=== PATIENT | female | born 1945 | race Hispanic/Latino ===

== ENCOUNTER 2020-02-18 05:33 | Inpatient (IN) | payer MEDICARE ==
--- NOTE | 2020-02-18 05:50 | Emergency Department Report ---
Blank Doc - Documentation Documentation: 74-year-old female with no reported medical history presents to ED in respirat ory distress. Patient reports she awoke this morning with difficulty breathing. EMS reports O2 sats on room air were 90%. Patient was given albuterol nebulizer treatment, mag sulfate 2 g, Solu-Medrol 125 mg. EMS attempted CPAP, however the patient did not tolerate. Patient arrives to ED nonrebreather. Patient reports a cough. She denies fever or known contact with anyone who has tested positive for COVID-19. She is tachypneic. Slight rales in lung bases. Patient placed on BiPAP. Orders will be placed for oncoming physician.
[2020-02-18 05:53] LABS: ABG Base Excess 1.9 mmol/L (-2.0-3.0); ABG HCO3 25.5 mmol/L (20.0-26.0); ABG Methemoglobin 0.5 % (0.0-1.5); ABG Oxygen Saturation 95.7 % (95.0-99.0); ABG PCO2 36.4 mm Hg; ABG PH 7.462 pH Units (7.350-7.450); ABG PO2 73.4 mm Hg (80.0-90.0)
--- NOTE | 2020-02-18 06:15 | XRay Report ---
CHEST 1 VIEW, 02/18/2020 5:04 AM CLINICAL INFORMATION/INDICATION: Cough COMPARISON: None. FINDINGS: SUPPORT DEVICES: None. HEART: The cardiac silhouette is normal in size. LUNGS/PLEURA: There are diffuse faint bilateral pulmonary opacities bilaterally. There may be a trace right pleural effusion. ADDITIONAL FINDINGS: No additional acute findings. IMPRESSION: 1. Faint bilateral pulmonary opacities. This may suggest developing infectious process or pulmonary e naya. 2. Probable small right pleural effusion. Signer Name: Erica Camp MD Signed: 02/18/2020 6:11 AM Workstation Name: [id number]
[2020-02-18 06:16] LABS: Basophils % (Auto) 0.3 % (0.0-1.8); Eosinophils # (Auto) 0.1 K/mm3 (0.0-0.4); Hematocrit 41.1 % (30.3-42.9); Hemoglobin 13.7 gm/dl (10.1-14.3); Lymphocytes # (Auto) 0.8 K/mm3 (1.2-5.4); Lymphocytes % (Auto) 9.7 % (13.4-35.0); Mean Corpuscular HGB Conc 33 % (30-34); Mean Corpuscular Volume 90 fl (79-97); Monocytes # (Auto) 0.4 K/mm3 (0.0-0.8); Monocytes % (Auto) 4.4 % (0.0-7.3); Platelet Count 245 K/mm3 (140-440); Red Blood Count 4.56 M/mm3 (3.65-5.03); Red Cell Distribution Width 13.8 % (13.2-15.2)
[2020-02-18 06:23] LABS: INR 1.15 (0.87-1.13)
[2020-02-18 06:24] LABS: Partial Thromboplastin Time 29.5 Sec. (24.2-36.6)
--- NOTE | 2020-02-18 06:29 | Emergency Department Report ---
ED Shortness of Breath HPI - General Chief Complaint: Dyspnea/Respdistress Stated Complaint: DEEP Time Seen by Provider: 02/18/20 06:27 Source: patient, EMS Mode of arrival: Stretcher Limitations: Other - History of Present Illness Initial Comments: This is a 74-year-old female who was placed on BiPAP for respiratory distress prior to my arrival. I reviewed her blood gas. She is not retaining CO2 and her PO2 was in the 70s. Despite this she was very tachypneic. Her x-ray was consistent with a COVID-19 infection. She was placed on isolation. She was not following commands or stating her name. She was tried on high flow O2. This maintained her sat in the upper 80s. However it was very clear With her respiratory rate persistently in the mid 40s, that this was nonsustainable. Therefore it was determined that elective intubation was required. This patient has no prior history at this facility. No further information was available to me at the time of her critical care management. We proceeded with RSI. - Related Data Allergies Allergy/AdvReac Type Severity Reaction Status Date / Time No Known Allergies Allergy Verified 02/18/20 05:39 ED Review of Systems ROS: Stated complaint: DEEP Other details as noted in HPI Comment: Unobtainable due to pts medical conditions ED Past Medical Hx - Past Medical History Previous Medical History?: No - Surgical History Past Surgical History?: No - Social History Smoking Status: Never Smoker Substance Use Type: None ED Physical Exam - General Limitations: Altered Mental Status, Other General appearance: lethargic, other (Respiratory distress) - Head Head exam: Present: atraumatic, normocephalic - Eye Eye exam: Absent: scleral icterus - ENT ENT exam: Present: mucous membranes dry - Neck Neck exam: Absent: meningismus - Respiratory Respiratory exam: Present: accessory muscle use, other (Very tachypneic) - Cardiovascular Cardiovascular Exam: Present: regular rate, normal rhythm. Absent: systolic murmur, diastolic murmur, rubs, gallop - GI/Abdominal GI/Abdominal exam: Present: soft, normal bowel sounds. Absent: distended, tenderness, guarding - Extremities Exam Extremities exam: Present: other (No deformity) - Back Exam Back exam: Present: normal inspection (Limited exam) - Neurological Exam Neurological exam: Present: altered - Skin Skin exam: Present: warm, dry, intact, normal color. Absent: rash ED Course Vital Signs 02/18/20 02/18/20 02/18/20 05:34 05:35 05:39 Pulse Rate 96 H 99 H Respiratory 44 H 51 H Rate Blood Pressure 154/72 O2 Sat by Pulse 96 95 96 Oximetry 02/18/20 02/18/20 02/18/20 05:45 06:00 06:16 Pulse Rate 95 H 96 H Respiratory 40 H 44 H 48 H Rate Blood Pressure 154/94 144/89 O2 Sat by Pulse 98 97 97 Oximetry 02/18/20 02/18/20 02/18/20 06:30 06:46 07:00 Pulse Rate 95 H 95 H 92 H Respiratory 35 H 36 H 44 H Rate Blood Pressure 159/93 159/93 146/80 O2 Sat by Pulse 98 90 87 Oximetry 02/18/20 02/18/20 02/18/20 07:16 07:38 08:18 Pulse Rate 90 90 Respiratory 45 H Rate Blood Pressure 140/82 105/50 O2 Sat by Pulse 90 92 85 Oximetry - Reevaluation(s) Reevaluation #1: RSI was performed. The patient was intubated single attempt. She was placed on sedated and restrained. She is admitted to the hospitalist service and obviously guarded condition with presumptive COVID-19 infection and respiratory failure 02/18/20 09:12 - Intubation Time Out Performed: No Sedative: Etomidate Paralytic: Succinylcholine Laryngoscope: Isaac Size: 4 ET Tube Size: 7.5 Tube Secured Depth (cm): 22 Tube Secured Location: teeth Tube Placement Confirmation: visualized tube passing t Patient Tolerated Procedure: well, no complications Intubation Complications: none ED Medical Decision Making - Lab Data Result diagrams: 02/18/20 05:50 02/18/20 07:26 Laboratory Results - last 24 hr 02/18/20 02/18/20 02/18/20 05:45 05:50 05:50 WBC RBC Hgb Hct MCV MCH MCHC RDW Plt Count Lymph % (Auto) [place] % (Auto) Eos % (Auto) Baso % (Auto) Lymph # (Auto) [place] # (Auto) Eos # (Auto) Baso # (Auto) Seg Neutrophils % Seg Neutrophils # PT 14.7 INR 1.15 H APTT 29.5 ABG pH 7.462 H ABG pCO2 36.4 ABG pO2 73.4 L ABG HCO3 25.5 ABG O2 Saturation 95.7 ABG O2 Content 17.8 ABG Base Excess 1.9 ABG Hemoglobin 13.5 ABG Carboxyhemoglobin 1.1 ABG Methemoglobin 0.5 Oxyhemoglobin 94.2 L FiO2 80 Sodium Potassium Chloride Carbon Dioxide Anion Gap BUN Creatinine Estimated GFR BUN/Creatinine Ratio Glucose Lactic Acid Calcium Magnesium Ferritin Total Bilirubin AST ALT Alkaline Phosphatase Lactate Dehydrogenase Troponin T < 0.010 C-Reactive Protein NT-Pro-B Natriuret Pep Total Protein Albumin Albumin/Globulin Ratio 02/18/20 02/18/20 02/18/20 05:50 05:50 05:50 WBC 8.6 RBC 4.56 Hgb 13.7 Hct 41.1 MCV 90 MCH 30 MCHC 33 RDW 13.8 Plt Count 245 Lymph % (Auto) 9.7 L [place] % (Auto) 4.4 Eos % (Auto) 1.0 Baso % (Auto) 0.3 Lymph # (Auto) 0.8 L [place] # (Auto) 0.4 Eos # (Auto) 0.1 Baso # (Auto) 0.0 Seg Neutrophils % 84.6 H Seg Neutrophils # 7.3 PT INR APTT ABG pH ABG pCO2 ABG pO2 ABG HCO3 ABG O2 Saturation ABG O2 Content ABG Base Excess ABG Hemoglobin ABG Carboxyhemoglobin ABG Methemoglobin Oxyhemoglobin FiO2 Sodium 144 Potassium 3.0 L Chloride 101.2 Carbon Dioxide 25 Anion Gap 21 BUN 19 H Creatinine 0.8 Estimated GFR > 60 BUN/Creatinine Ratio 24 Glucose 175 H Lactic Acid 2.70 H* Calcium 8.2 L Magnesium Ferritin Total Bilirubin 0.40 AST 25 ALT 17 Alkaline Phosphatase 71 Lactate Dehydrogenase Troponin T C-Reactive Protein NT-Pro-B Natriuret Pep 809.0 Total Protein 6.5 Albumin 3.1 L Albumin/Globulin Ratio 0.9 02/18/20 02/18/20 02/18/20 07:26 07:26 07:26 WBC RBC Hgb Hct MCV MCH MCHC RDW Plt Count Lymph % (Auto) [place] % (Auto) Eos % (Auto) Baso % (Auto) Lymph # (Auto) [place] # (Auto) Eos # (Auto) Baso # (Auto) Seg Neutrophils % Seg Neutrophils # PT 14.6 INR 1.15 H APTT 32.0 ABG pH ABG pCO2 ABG pO2 ABG HCO3 ABG O2 Saturation ABG O2 Content ABG Base Excess ABG Hemoglobin ABG Carboxyhemoglobin ABG Methemoglobin Oxyhemoglobin FiO2 Sodium Potassium Chloride Carbon Dioxide Anion Gap BUN Creatinine Estimated GFR BUN/Creatinine Ratio Glucose Lactic Acid 2.20 H* Calcium Magnesium 2.80 H Ferritin Total Bilirubin AST ALT Alkaline Phosphatase Lactate Dehydrogenase Troponin T C-Reactive Protein NT-Pro-B Natriuret Pep Total Protein Albumin Albumin/Globulin Ratio 02/18/20 02/18/20 07:26 07:26 WBC RBC Hgb Hct MCV MCH MCHC RDW Plt Count Lymph % (Auto) [place] % (Auto) Eos % (Auto) Baso % (Auto) Lymph # (Auto) [place] # (Auto) Eos # (Auto) Baso # (Auto) Seg Neutrophils % Seg Neutrophils # PT INR APTT ABG pH ABG pCO2 ABG pO2 ABG HCO3 ABG O2 Saturation ABG O2 Content ABG Base Excess ABG Hemoglobin ABG Carboxyhemoglobin ABG Methemoglobin Oxyhemoglobin FiO2 Sodium Potassium Chloride Carbon Dioxide Anion Gap BUN Creatinine Estimated GFR BUN/Creatinine Ratio Glucose 201 H Lactic Acid Calcium Magnesium Ferritin 514.3 H Total Bilirubin AST ALT Alkaline Phosphatase Lactate Dehydrogenase 616 H Troponin T C-Reactive Protein 35.60 H NT-Pro-B Natriuret Pep Total Protein Albumin Albumin/Globulin Ratio - EKG Data EKG shows normal: sinus rhythm - EKG Data Interpretation: other (Right bundle branch block) - Radiology Data Radiology results: report reviewed, image reviewed IMPRESSION: 1. Faint bilateral pulmonary opacities. This may suggest developing infectious process or pulmonary edema. 2. Probable small right pleural effusion. Critical Care Time: Yes Critical care time in (mins) excluding proc time.: 85 Critical care attestation.: If time is entered above; I have spent that time in minutes in the direct care of this critically ill patient, excluding procedure time. ED Disposition Clinical Impression: Hypokalemia, Person under investigation for COVID-19, Right bundle branch block Respiratory failure Qualifiers: Chronicity: acute Respiratory failure complication: unspecified whether with hypoxia or hypercapnia Qualified Code(s): J96.00 - Acute respiratory failure, unspecified whether with hypoxia or hypercapnia Congestive heart failure Qualifiers: Heart failure type: unspecified Heart failure chronicity: acute Qualified Code(s): I50.9 - Heart failure, unspecified Disposition: -09 OP ADMIT IP TO THIS HOSP Is pt being admited?: Yes Does the pt Need Aspirin: Yes Condition: Stable Referrals: PRIMARY CARE, [Primary Care Provider] - 3-5 Days Time of Disposition: 09:17
[2020-02-18 06:31] LABS: Alanine Aminotransferase 17 units/L (7-56); Albumin 3.1 g/dL (3.9-5); BUN/Creatinine Ratio 24; Blood Urea Nitrogen 19 mg/dL (7-17); Calcium 8.2 mg/dL (8.4-10.2); Hemolysis Index 2
[2020-02-18] MEDS ORDERED: FUROSEMIDE 40 MG/4 ML INJ IV ONE (06:51)
[2020-02-18] MEDS ORDERED: POTASSIUM CHLORIDE ER 20 MEQ TAB PO ONE (06:51)
[2020-02-18] MEDS ORDERED: methylPREDNISolone Sod Succinate 125 MG/2 ML INJ IV ONE (06:52)
[2020-02-18] MEDS ORDERED: LIP THERAPY VASELINE TP PRN (07:18)
[2020-02-18] MEDS ORDERED: MINERAL OIL/PETROLATUM, WHITE OPHTH OINT 3.5 GM OU PRN (07:18)
[2020-02-18] MEDS ORDERED: LORazepam 2 MG/ML VIAL IV PRN (07:18)
[2020-02-18] MEDS ORDERED: SUCCINYLCHOLINE CHLORIDE 200 MG/10 ML INJ MDV ONE ×2 (07:25)
[2020-02-18] MEDS ORDERED: ETOMIDATE 20 MG/10 ML INJ IV ONE (07:25)
[2020-02-18] MEDS ORDERED: AZITHROMYCIN 500 MG in SODIUM CHLORIDE 0.9% 250ML 250 ML IV ONE (07:30)
[2020-02-18] MEDS ORDERED: PROPOFOL 500 MG/50 ML VIAL IV SCH (07:30)
[2020-02-18] MEDS ORDERED: LORazepam 100 MG in SODIUM CHLORIDE 0.9% 50 ML, EMPTY BAG 0 ML IV SCH (08:00)
--- NOTE | 2020-02-18 08:15 | XRay Report ---
CHEST 1 VIEW 0743 hours INDICATION: ETT placement. COMPARISON: Earlier today at 0547 hours FINDINGS: Support devices: An endotracheal tube has been inserted which terminates 4.4 cm superior to the carmen a. Heart: Within normal limits. Lungs/Pleura: Mild bilateral infiltrates are again identified concerning for pulmonary edema or atypi michael pneumonia. No pleural effusion or pneumothorax is identified although the left costophrenic angle is cut off the [id number]. Additional findings: None. IMPRESSION: Adequate placement of the endotracheal tube. Stable bilateral mild pulmonary edema or infiltrates. Signer Name: Patrick Holbrook Jr, MD Signed: 02/18/2020 8:11 AM Workstation Name: [id number]
[2020-02-18 08:34] LABS: INR 1.15 (0.87-1.13)
--- NOTE | 2020-02-18 08:46 | History and Physical Report ---
History of Present Illness Date of examination: 02/18/20 Date of admission: 02/18/2020 Chief complaint: Worsening shortness of breath History of present illness: 74-year-old morbidly obese female patient was brought to the emergency room with acute respiratory distress initially on BiPAP, noted to be in acute hypoxic hypercapnic respiratory failure requiring intubation and mechanical ventilation. patient's initial evaluation with chest x-ray was consistent with bilateral pneumonia high suspicion for COVID-19 infection , placed on isolation , requested for inflammatory markers . Patient also has lactic acidosis, and empiric antibiotics Rocephin and Zithromax. Time of my evaluation patient is intubated on ventilatory support, unable to get proper medical history. As per triage note patient presented with worsening shortness of breath and cough denied fever Past History Past Medical History: other (Unknown) Past Surgical History: Other (Unknown) Social history: other (Unknown) Family history: other (Unknown as patient is intubated and no family available) Medications and Allergies Allergies Allergy/AdvReac Type Severity Reaction Status Date / Time No Known Allergies Allergy Verified 02/18/20 05:39 Active Meds: Active Medications Hydrophilic Ointment (Lip Therapy Vaseline) 1 applic TP Q2HR PRN PRN Reason: Dry Lips Propofol (Propofol) 500 mg in 50 mls @ 3.865 mls/hr IV TITR HERNAN; Protocol Lorazepam 100 mg/ Sodium Chloride/ Miscellaneous Information 100 mls @ 1 mls/hr IV TITR HERNAN; Protocol Lorazepam (Lorazepam 2 Mg/Ml Vial) 2 mg IV Q10MIN PRN PRN Reason: Agitation Multi-Ingred Cream/Lotion/Oil/Oint (Mineral Oil/Petrolatum, White Ophth Oint 3.5 Gm) 1 applic OU Q4HR PRN PRN Reason: Dry Eye(s) Review of Systems ROS unobtainable: due to mental status Exam - Constitutional Vitals: Temp Pulse Resp BP Pulse Ox 90 45 H 105/50 85 02/18/20 08:18 02/18/20 07:16 02/18/20 08:18 02/18/20 08:18 General appearance: Present: severe distress, obese (Morbidly obese), other (Orally intubated on ventilatory support) - EENT Eyes: Present: PERRL, EOM intact - Neck Neck: Present: supple, normal ROM - Respiratory Respiratory effort: labored Respiratory: bilateral: diminished, rhonchi, negative: rales, wheezing - Cardiovascular Rhythm: regular Heart Sounds: Present: S1 & S2 - Extremities Extremities: no ischemia, No edema - Abdominal General gastrointestinal: Present: soft, non-tender, non-distended, normal bowel sounds - Integumentary Integumentary: Present: clear, warm - Musculoskeletal Musculoskeletal: other (Intubated on vent) - Psychiatric Psychiatric: other (Intubated on vent) - Neurologic Neurologic: other (Intubated and sedated on vent) HEART Score - HEART Score Troponin: Troponin T < 0.010 ng/mL (0.00-0.029) 02/18/20 05:50 Results - Labs CBC & Chem 7: 02/18/20 05:50 02/18/20 07:26 Labs: Abnormal lab results 02/18/20 02/18/20 02/18/20 Range/Units 05:45 05:50 05:50 Lymph % (Auto) 9.7 L (13.4-35.0) % Lymph # (Auto) 0.8 L (1.2-5.4) K/mm3 Seg Neutrophils % 84.6 H (40.0-70.0) % INR 1.15 H (0.87-1.13) ABG pH 7.462 H (7.350-7.450) pH Units ABG pO2 73.4 L (80.0-90.0) mm Hg Oxyhemoglobin 94.2 L (95.0-99.0) % Potassium (3.6-5.0) mmol/L BUN (7-17) mg/dL Glucose (65-100) mg/dL Lactic Acid (0.7-2.0) mmol/L Calcium (8.4-10.2) mg/dL Magnesium (1.7-2.3) mg/dL Ferritin (10.0-200.0) ng/mL Lactate Dehydrogenase (91-180) units/L Albumin (3.9-5) g/dL 02/18/20 02/18/20 02/18/20 Range/Units 05:50 05:50 07:26 Lymph % (Auto) (13.4-35.0) % Lymph # (Auto) (1.2-5.4) K/mm3 Seg Neutrophils % (40.0-70.0) % INR (0.87-1.13) ABG pH (7.350-7.450) pH Units ABG pO2 (80.0-90.0) mm Hg Oxyhemoglobin (95.0-99.0) % Potassium 3.0 L (3.6-5.0) mmol/L BUN 19 H (7-17) mg/dL Glucose 175 H (65-100) mg/dL Lactic Acid 2.70 H* 2.20 H* (0.7-2.0) mmol/L Calcium 8.2 L (8.4-10.2) mg/dL Magnesium (1.7-2.3) mg/dL Ferritin (10.0-200.0) ng/mL Lactate Dehydrogenase (91-180) units/L Albumin 3.1 L (3.9-5) g/dL 02/18/20 02/18/20 02/18/20 Range/Units 07:26 07:26 07:26 Lymph % (Auto) (13.4-35.0) % Lymph # (Auto) (1.2-5.4) K/mm3 Seg Neutrophils % (40.0-70.0) % INR 1.15 H (0.87-1.13) ABG pH (7.350-7.450) pH Units ABG pO2 (80.0-90.0) mm Hg Oxyhemoglobin (95.0-99.0) % Potassium (3.6-5.0) mmol/L BUN (7-17) mg/dL Glucose 201 H (65-100) mg/dL Lactic Acid (0.7-2.0) mmol/L Calcium (8.4-10.2) mg/dL Magnesium 2.80 H (1.7-2.3) mg/dL Ferritin (10.0-200.0) ng/mL Lactate Dehydrogenase 616 H (91-180) units/L Albumin (3.9-5) g/dL 02/18/20 Range/Units 07:26 Lymph % (Auto) (13.4-35.0) % Lymph # (Auto) (1.2-5.4) K/mm3 Seg Neutrophils % (40.0-70.0) % INR (0.87-1.13) ABG pH (7.350-7.450) pH Units ABG pO2 (80.0-90.0) mm Hg Oxyhemoglobin (95.0-99.0) % Potassium (3.6-5.0) mmol/L BUN (7-17) mg/dL Glucose (65-100) mg/dL Lactic Acid (0.7-2.0) mmol/L Calcium (8.4-10.2) mg/dL Magnesium (1.7-2.3) mg/dL Ferritin 514.3 H (10.0-200.0) ng/mL Lactate Dehydrogenase (91-180) units/L Albumin (3.9-5) g/dL Assessment and Plan --Acute hypoxic respiratory failure; Requiring intubation and mechanical ventilation Nebulizers, wean as tolerated and extubate Critical care consult --Bilateral pneumonia; Empiric antibiotics --Sepsis secondary to bilateral pneumonia --Lactic acidosis --Hypokalemia; replenish per protocol Monitor levels, check magnesium --Moderate malnutrition/hypoalbuminemia Nutrition supplements, nutrition consult if needed --PUI/high suspicion for COVID-19 Isolation precautions per protocol Inflammatory markers, check lozano PCR ID consult, pulmonary consult as needed --Morbid obesity; BMI 45.8 kg Patient needs weight reduction when medically stable --DVT prophylaxis; Lovenox --Full CODE STATUS Patient is critically ill with multiple comorbidities High suspicion for COVID-19. Acute hypoxic hypercapnic respiratory failure Very poor prognosis, no contact numbers available We will try to reach family and discuss patient's condition Critical care time 50 minutes
[2020-02-18 08:52] LABS: C-Reactive Protein 35.6 mg/dL (0.00-1.30)
[2020-02-18] MEDS ORDERED: ASPIRIN 300 MG RECT SUPP PR ONE (09:18)
[2020-02-18] MEDS ORDERED: cefTRIAXone/NS 1 GM/50 ML 1 GM/50 ML BAG IV SCH (09:30)
[2020-02-18] MEDS ORDERED: ALBUTEROL 2.5 MG/3 ML NEBU IH PRN (09:30)
[2020-02-18] MEDS ORDERED: AZITHROMYCIN 500 MG in SODIUM CHLORIDE 0.9% 250ML 250 ML IV SCH (09:30)
[2020-02-18 09:57] LABS: ABG Base Excess -1.5 mmol/L (-2.0-3.0); ABG HCO3 24.2 mmol/L (20.0-26.0); ABG Methemoglobin 0.3 % (0.0-1.5); ABG Oxygen Saturation 99.3 % (95.0-99.0); ABG PCO2 44.6 mm Hg; ABG PH 7.353 pH Units (7.350-7.450); ABG PO2 224.8 mm Hg (80.0-90.0)
[2020-02-18] MEDS ORDERED: PANTOPRAZOLE 40 MG INJ IV SCH (10:00)
[2020-02-18 11:26] VITALS: BP 111/56
[2020-02-18] MEDS ORDERED: SODIUM CHLORIDE 0.9% 1000 ML 1,000 ML ONE (11:44)
--- NOTE | 2020-02-18 11:57 | Consultation ---
History of Present Illness Consult date: 02/18/20 Requesting physician: SANDRITA ROJAS Reason for consult: hypoxemia History of present illness: 74 y/o female, now intubated and sedated so no history is obtainable from her, admitted with acute hypoxic respiratory failure after a failed trial of CPAP/Bipap. Indications that led to intubation are unclear currently. Blood gas drawn on 80% was ok, but not sure what mode of ventilation this was own. Post intubation ABG is good. Concern for COVID so patient is a PUI. She has been placed on high dose steroids but no history in the chart to indicate lung disease. BNP was elevated but only 800. BP is marginal. CXR shows bilateral lower lobe predominant infiltrates but this could be edema vs infection. Never admitted here before. No family or person to notify listed. REmainder of the review is negative. Past History Past Medical History: other (unable to obtain) Past Surgical History: Other (unable to obtain) Social history: other (unable to obtain) Family history: other (unable to obtain) Medications and Allergies Allergies Allergy/AdvReac Type Severity Reaction Status Date / Time No Known Allergies Allergy Verified 02/18/20 05:39 Active Meds: Active Medications Albuterol (Albuterol 2.5 Mg/3 Ml Nebu) 2.5 mg IH Q4HRT PRN PRN Reason: Shortness Of Breath Enoxaparin Sodium (Enoxaparin 40 Mg/0.4 Ml Inj) 40 mg SUB-Q QDAY@2200 HERNAN; Protocol Hydrophilic Ointment (Lip Therapy Vaseline) 1 applic TP Q2HR PRN PRN Reason: Dry Lips Propofol (Propofol) 500 mg in 50 mls @ 3.865 mls/hr IV TITR HERNAN; Protocol Last Titration: 02/18/20 10:48 Dose: 5 mcg/kg/min, 3.865 mls/hr Documented by: Lorazepam 100 mg/ Sodium Chloride/ Miscellaneous Information 100 mls @ 1 mls/hr IV TITR HERNAN; Protocol Last Titration: 02/18/20 10:45 Dose: 2 mg/hr, 2 mls/hr Documented by: Potassium Chloride (Kcl 10meq/100ml) 10 meq in 100 mls @ 100 mls/hr IV Q1H HERNAN Stop: 02/18/20 12:59 Azithromycin 500 mg/ Sodium (Chloride) 250 mls @ 250 mls/hr IV Q24H HERNAN; Protocol Ceftriaxone Sodium (Rocephin/Ns 1 Gm/50 Ml) 1 gm in 50 mls @ 100 mls/hr IV Q24H HERNAN; Protocol Lorazepam (Lorazepam 2 Mg/Ml Vial) 2 mg IV Q10MIN PRN PRN Reason: Agitation Methylprednisolone Sodium Succinate (Methylprednisolone Sod Succinate 125 Mg/2 Ml Inj) 80 mg IV Q8HR HERNAN Multi-Ingred Cream/Lotion/Oil/Oint (Mineral Oil/Petrolatum, White Ophth Oint 3.5 Gm) 1 applic OU Q4HR PRN PRN Reason: Dry Eye(s) Pantoprazole Sodium (Pantoprazole 40 Mg Inj) 40 mg IV QDAY HERNAN Review of Systems All systems: negative Physical Examination Vital signs: Vital Signs Pulse Ox 96 02/18/20 05:34 Patient not examined in person to preserve PPE during the COVID 19 pandemic. Results - Laboratory Findings CBC and BMP: 02/18/20 05:50 02/18/20 07:26 ABG ABG pH 7.353 pH Units (7.350-7.450) 02/18/20 09:35 ABG pCO2 44.6 mm Hg 02/18/20 09:35 ABG pO2 224.8 mm Hg (80.0-90.0) H 02/18/20 09:35 ABG O2 Saturation 99.3 % (95.0-99.0) H 02/18/20 09:35 PT/INR, D-dimer PT 14.6 Sec. (12.2-14.9) 02/18/20 07:26 INR 1.15 (0.87-1.13) H 02/18/20 07:26 D-Dimer > 75546 ng/mlDDU (0-234) H 02/18/20 07:26 Abnormal lab findings: Abnormal Labs 02/18/20 02/18/20 02/18/20 05:45 05:50 05:50 Lymph % (Auto) 9.7 L Lymph # (Auto) 0.8 L Seg Neutrophils % 84.6 H INR 1.15 H D-Dimer ABG pH 7.462 H ABG pO2 73.4 L ABG O2 Saturation Oxyhemoglobin 94.2 L Potassium BUN Glucose Lactic Acid Calcium Magnesium Ferritin Lactate Dehydrogenase C-Reactive Protein Albumin 02/18/20 02/18/20 02/18/20 05:50 05:50 07:26 Lymph % (Auto) Lymph # (Auto) Seg Neutrophils % INR D-Dimer ABG pH ABG pO2 ABG O2 Saturation Oxyhemoglobin Potassium 3.0 L BUN 19 H Glucose 175 H Lactic Acid 2.70 H* 2.20 H* Calcium 8.2 L Magnesium Ferritin Lactate Dehydrogenase C-Reactive Protein Albumin 3.1 L 02/18/20 02/18/20 02/18/20 07:26 07:26 07:26 Lymph % (Auto) Lymph # (Auto) Seg Neutrophils % INR 1.15 H D-Dimer > 92575 H ABG pH ABG pO2 ABG O2 Saturation Oxyhemoglobin Potassium BUN Glucose 201 H Lactic Acid Calcium Magnesium 2.80 H Ferritin Lactate Dehydrogenase 616 H C-Reactive Protein 35.60 H Albumin 02/18/20 02/18/20 07:26 09:35 Lymph % (Auto) Lymph # (Auto) Seg Neutrophils % INR D-Dimer ABG pH ABG pO2 224.8 H ABG O2 Saturation 99.3 H Oxyhemoglobin Potassium BUN Glucose Lactic Acid Calcium Magnesium Ferritin 514.3 H Lactate Dehydrogenase C-Reactive Protein Albumin
--- NOTE | 2020-02-18 12:11 | Event Note ---
Date: 02/18/20 74-year-old female with respiratory failure and presumptive Covid infection. She is already admitted pending ICU placement. I was called to the bedside by primary nurse/medic. The patient was found to be in PEA. She did have some agonal respirations initially. CPR was initiated. PEA persisted after 2 rounds of epinephrine and bicarb. Ultimately she was pronounced essentially in asystole. There were no signs of life. This patient was previously admitted with an extremely grave diagnosis. Despite intubation and provement of her pulse oximetry her respiratory distress continued unabated. She was sedated but became hypotensive. Her near-term expiration was not unanticipated. Hospitalist was informed.
[2020-02-18] MEDS ORDERED: methylPREDNISolone Sod Succinate 125 MG/2 ML INJ IV SCH (14:00)
[2020-02-18] MEDS: POTASSIUM CHLORIDE 10 MEQ 10 MEQ/100 ML BAG IV SCH (14:50)
--- NOTE | 2020-02-18 14:54 | Death Summary ---
Summary - Providers Date of service: 02/18/20 Consults: 02/18/20 07:18 Consult to Dietitian/Nutrition [CONS] Routine Physician Instructions: Reason For Exam: Reason for Consult: Evaluate nutritional intake 02/18/20 09:04 Consult to Physician [CONS] Urgent Comment: Consulting Provider: CLARISSA STONE Physician Instructions: Reason For Exam: Ac hypoxic respiratory failure on vent/CC consult Attending: SANDRITA ROJAS - summary Date of admission: 02/18/20 08:40 Date of : 02/18/20 (11:50) - Final diagnosis (1) Acute respiratory failure with hypoxia Note: Final diagnosis: (2) COVID-19 virus infection Note: Final diagnosis: (3) Congestive heart failure Qualifiers: Heart failure type: unspecified Heart failure chronicity: acute Qualified Code(s): I50.9 - Heart failure, unspecified Note: Final diagnosis:
[2020-02-18] MEDS ORDERED: ENOXAPARIN 40 MG/0.4 ML INJ SUB-Q SCH (22:00)
== END 2020-02-18 17:30 | DRG 871 ==
LOC: ED 05:33 → CC1 08:40
PROVIDERS: ADMIT Internal Medicine; ATTEND Internal Medicine
PROC: 4A033R1 Measurement of Arterial Saturation, Peripheral, Percutaneous Approach (ICD-10-PCS; principal; 2020-02-18)
PROC: 5A1935Z Respiratory Ventilation, Less than 24 Consecutive Hours (ICD-10-PCS; 2020-02-18)
PROC: 0BH17EZ Insertion of Endotracheal Airway into Trachea, Via Natural or Artificial Opening (ICD-10-PCS; 2020-02-18)
PROC: 5A12012 Performance of Cardiac Output, Single, Manual (ICD-10-PCS; 2020-02-18)
PROC: 5A09357 Assistance with Respiratory Ventilation, Less than 24 Consecutive Hours, Continuous Positive Airway Pressure (ICD-10-PCS; 2020-02-18)
DX: A41.9 Sepsis, unspecified organism (principal); U07.1 COVID-19; J96.01 Acute respiratory failure with hypoxia; J18.9 Pneumonia, unspecified organism; E87.2 Acidosis; E44.0 Moderate protein-calorie malnutrition; Z68.42 Body mass index [BMI] 45.0-49.9, adult; E88.09 Other disorders of plasma-protein metabolism, not elsewhere classified; E87.6 Hypokalemia; E66.01 Morbid (severe) obesity due to excess calories; I95.9 Hypotension, unspecified; I50.9 Heart failure, unspecified; Z79.899 Other long term (current) drug therapy; Z79.891 Long term (current) use of opiate analgesic
CPT/HCPCS: 36415; 36600; 71045; 80053; 82140; 82728; 82803; 82947; 83615; 83735; 83880; 84145; 84484; 85025; 85379; 85610; 85730; 86140; 87040; 87070; 87205; 93005; 94002; 94760; G0378; J0330; J0456; J1940; J2060; J2704; J2930; J7030; J7050; U0003